=== PATIENT | male | born 1970 | race Caucasian/White ===

== ENCOUNTER 2021-03-16 13:43 | Outpatient (CLI) | payer BC, SELFPAY ==
--- NOTE | ~2021-03-16 | XR_ITS ---
XR lumbar spine 2-3V DATE: 03/16/2021 14:17 INDICATION: Low back pain. Back spasms. TECHNIQUE: AP, lateral and coned lateral lumbosacral views COMPARISON: None FINDINGS: Normal alignment of the lumbar spine. There is minimal degenerative spurring/minimal degen erative disc at L3-4. There is moderate loss of interspace height at L4-5. No fracture or dislocati on or bone destruction. The lumbar pedicles are intact. Normal sacroiliac joints. IMPRESSION: Mild degenerative disc disease at L3-4 Moderate loss of interspace height at L4-5 Reviewed, dictated and finalized at location B.
== END 2021-03-16 13:44 | disposition home or self-care (01) ==
LOC: CHSIMG 13:47
PROVIDERS: PCP Internal Medicine; Visit Provider Internal Medicine
DX: M54.59 Other low back pain (principal)
CPT/HCPCS: 72100

== ENCOUNTER 2021-03-22 07:59 | Outpatient (RCR) | payer BC, SELFPAY ==
--- NOTE | 2021-03-22 09:10 | PTOPEVAL ---
Thank you for referring Bryan Goode to [facility].? The patient is scheduled to be seen for therapy? ____x/week for ___ weeks. Please review, sign, date and return this plan of care JENNA. I agree with and certify that the following plan of care is medically necessary. Referring Physician Date Admitting Provider: Attending Provider: Ailyn Post MD Referring Provider: *PT Outpatient Evaluation Start: 03/22/21 07:57 Freq: Status: Active Protocol: Document 03/22/21 07:57 ACR (Rec: 03/22/21 08:59 ACR [email or web address]) Therapy Assessment Status Assessment Status Assessment Status Evaluation Evaluation Information Problem Diagnosis low back pain Onset 03/01/21 Subjective Information Patient states that a few Query Text:As Reported By Patient/ weeks ago he was unable to get Family out of the bed. He states he went to the chiropractor which helped a little bit. He went to the MD and got an X-ray which showed some DDD. Patient states that the most difficult activity for him is lifting and bending. Patient states walking, standing, and sitting are all fine. Patient states that he was in [place] standing on a boat which he feels caused all of this. Patient states that he is taking a muscle relaxor and steroid pack. Patient states that the pain is not waking him up at night. Patient states that his goal for therapy is to improve function . Prior Level of Function Activity Level (Last 3 Months) Occupation [place] Hand Dominance Left Activity of Daily Living Ability Independent Indoor/Home Mobility Independent Community Mobility Independent Stairs Ability Independent Functional Cognition (Planning, Shopping Independent , Taking Medications) Cooking Yes Cleaning Yes Laundry Yes Shopping Yes Driving Yes Pain Assessment Timing of Pain Assessment Timing of Pain Assessment Assessment Pain Scale Pain Scale Used Numeric (1 - 10) Self Report Pain Assessment Lower Back
== END 2021-04-08 08:57 | disposition home or self-care (01) ==
LOC: CHSPT 07:59
PROVIDERS: PCP Internal Medicine; Visit Provider Internal Medicine
DX: M54.50 Low back pain, unspecified (principal); M51.36 Other intervertebral disc degeneration, lumbar region
CPT/HCPCS: 97110; 97161

== ENCOUNTER 2021-03-30 08:29 | Outpatient (CLI) | payer BC, SELFPAY | END 2021-03-30 08:30 | disposition home or self-care (01) | LOC: CHSLAB 08:31 | PROVIDERS: PCP Internal Medicine; Visit Provider Internal Medicine | DX: Z53.8 Procedure and treatment not carried out for other reasons (principal) | CPT/HCPCS: 99199; 36415 ==